=== PATIENT | male | born 1955 | race Caucasian/White ===

== ENCOUNTER 2017-01-01 04:10 | Observation (INO) | payer BC ==
[~2017-01-01] VITALS: Ht 167.6 cm; Wt 98.5 kg
[~2017-01-01 04:10] MED LIST: ALEVE220 MG PO; AMARYL2 MG PO; ASPIRIN81 M2 PO; DIABETA5 MG PO; GLIMEPIRIDE2 MG PO; GLUCOPHAGE1000 MG PO; INVOKANA100 MG PO; LISINOPRIL10 MG PO; LO-DOSE ASPIRIN81 M1 PO; METFORMIN HCL500 M1 PO; PRAVACHOL80 MG PO; PRAVASTATIN SOD40 MG PO; PREVACID30 MG; PRINIVIL10 MG PO; XODOL 5-300 TA1 EACH PO
[2017-01-01 04:51] LABS: HEMATOCRIT 44.6 % (38.0-50.0); MCH 30.6 PG (29.0-34.0); MCHC 33.9 G/DL (30.0-36.0); MCV 90.5 FL (86-99); MEAN PLAT.VOLUME 11.5 uM^3 (9.0-12.4); PLATELET COUNT 139 K/uL (156-360); RBC DIS.WIDTH-SD 42.6 % (39-53); RED BLOOD COUNT 4.93 M/uL (4.00-5.50); WHITE BLOOD COUNT 8.1 K/uL (4.1-10.2)
[2017-01-01 05:04] LABS: CHLORIDE 102 mEq/L (99-109); POTASSIUM 4.1 mEq/L (3.7-5.4); SODIUM 137 mEq/L (136-147)
[2017-01-01 05:08] LABS: ANION GAP 13 MEQ/L (2-14)
[2017-01-01 05:10] LABS: GFR ESTIMATE (CALCULATED) > 59 mL/min/; TROP-I INTERPRETATION NEGATIVE; TROPONIN-I < 0.01 ng/mL (0.0-0.30)
[2017-01-01 05:11] LABS: UREA NITROGEN (BUN) 17 mg/dL (9-23)
[2017-01-01 05:18] LABS: GLUCOSE 406 mg/dL (70-99)
[2017-01-01 07:04] LABS: POINT-OF-CARE METER ID UU13113747
[2017-01-01] MEDS ORDERED: METOPROLOL TART25 MG PO (08:54)
[2017-01-01 09:36] LABS: POINT-OF-CARE METER ID UU13113747
[2017-01-01 10:36] VITALS: BP 133/71
[2017-01-01 11:36] LABS: D-DIMER ELISA < 150.00 ng/mLDDU (<230)
[2017-01-01 11:49] LABS: TROP-I INTERPRETATION NEGATIVE; TROPONIN-I 0.01 ng/mL (0.0-0.30)
[2017-01-01 11:51] LABS: HDL CHOLESTEROL 40 MG/DL (Desirable>=40); LDL CHOLESTEROL 96 mg/dL (Desirable<100); NON-HDL CHOLESTEROL 155 mg/dL (Desirable<160); TOTAL CHOLESTEROL 195 mg/dL (Desirable<200); TRIGLYCERIDES 294 MG/DL (Normal: <150)
[2017-01-01 12:40] VITALS: BP 100/79
[2017-01-01 13:16] LABS: POINT-OF-CARE METER ID UU13113700
[2017-01-01 16:00] VITALS: BP 110/62
[2017-01-01 17:07] LABS: TROP-I INTERPRETATION NEGATIVE; TROPONIN-I 0.02 ng/mL (0.0-0.30)
[2017-01-01] MEDS ORDERED: ASPIR-LOW81 MG PO (17:21)
[2017-01-01 17:30] LABS: POINT-OF-CARE METER ID UU13113700
== END 2017-01-01 18:15 | disposition home or self-care (01) ==
LOC: EME 04:10 → 5WEST 07:25 → ENRESERV 07:26 → CANRESERV 07:34 → ENRESERV 07:34 → EDOF 09:43 → 5WEST 10:14
PROVIDERS: Emergency Medicine; Internal Medicine
DX: R07.9 Chest pain, unspecified (principal); E11.65 Type 2 diabetes mellitus with hyperglycemia; I10 Essential (primary) hypertension; E78.5 Hyperlipidemia, unspecified; E66.01 Morbid (severe) obesity due to excess calories; J84.10 Pulmonary fibrosis, unspecified; J45.909 Unspecified asthma, uncomplicated; Z87.891 Personal history of nicotine dependence; Z87.442 Personal history of urinary calculi; Z82.49 Family history of ischemic heart disease and other diseases of the circulatory system; Z79.82 Long term (current) use of aspirin; Z79.84 Long term (current) use of oral hypoglycemic drugs; Z68.35 Body mass index [BMI] 35.0-35.9, adult
CPT/HCPCS: 71020; 80048; 80061; 82948; 84484; 85027; 85379; 93005; 99281; 99285; G0378; J1650; J1815; J7030

== ENCOUNTER → 2017-04-29 | Outpatient (CLI) | payer BC ==
[~2017-04-29] VITALS: Ht 167.6 cm; Wt 96.2 kg
[~2017-04-29] MED LIST changes: +AMARYL4 MG PO; +ASPIR 8181 M1 PO; +ASPIR-LOW81 MG PO; -GLIMEPIRIDE2 MG PO; +METOPROLOL TART25 MG PO; +NITROSTAT0.4 MG SL
[2017-04-29 14:28] LABS: ALBUMIN 4.3 G/DL (3.2-4.8); CHLORIDE 105 MEQ/L (99-109); POTASSIUM 4.4 MEQ/L (3.7-5.4); SODIUM 139 MEQ/L (136-147); TOTAL BILIRUBIN 1.4 MG/DL (0.0-1.0)
[2017-04-29 14:34] LABS: ALKALINE PHOSPHATASE 71 IU/L (3-129); ALT (GPT) 163 IU/L (3-49); AST (GOT) 59 IU/L (2-34); CREATININE 0.7 MG/DL (0.6-1.3); GFR ESTIMATE (CALCULATED) > 59 mL/min/ (58.99-99999); GLUCOSE 146 mg/dL (70-99); TOTAL PROTEIN 7.5 G/DL (6.4-8.3); UREA NITROGEN (BUN) 17 mg/dL (9-23)
== END | disposition home or self-care (01) ==
LOC: AMB 10:43
PROVIDERS: Internal Medicine Gastroenterology
DX: K80.61 Calculus of gallbladder and bile duct with cholecystitis, unspecified, with obstruction (principal); K86.89 Other specified diseases of pancreas; R79.89 Other specified abnormal findings of blood chemistry; K75.81 Nonalcoholic steatohepatitis (NASH); D69.6 Thrombocytopenia, unspecified; D45 Polycythemia vera; I10 Essential (primary) hypertension; E11.9 Type 2 diabetes mellitus without complications; E80.6 Other disorders of bilirubin metabolism; J84.112 Idiopathic pulmonary fibrosis; E78.5 Hyperlipidemia, unspecified; Z79.82 Long term (current) use of aspirin; F17.220 Nicotine dependence, chewing tobacco, uncomplicated; Z79.84 Long term (current) use of oral hypoglycemic drugs
CPT/HCPCS: 74329; 80053; 82948; 87081; 88108; 88305; C1757; C1769; C2625; J0330; J2250; J2405; J3010

== ENCOUNTER 2017-05-04 08:10 | Inpatient (IN) | payer BC ==
[~2017-05-04] VITALS: Ht 167.6 cm; Wt 96.2 kg
[2017-05-04 08:44] VITALS: BP 162/75
[2017-05-04 11:51] LABS: INTER. NORMALIZED RATIO 1.1
[2017-05-04 11:53] LABS: PTT 27.9 SEC (25-37)
[2017-05-04 12:15] VITALS: BP 176/73
[2017-05-04 13:33] LABS: ALBUMIN 4.5 G/DL (3.2-4.8); AMYLASE 35 IU/L (1-118); CHLORIDE 103 MEQ/L (99-109); POTASSIUM 4.7 MEQ/L (3.7-5.4); SODIUM 139 MEQ/L (136-147); TOTAL BILIRUBIN 1.4 MG/DL (0.0-1.0)
[2017-05-04 13:41] LABS: ALKALINE PHOSPHATASE 91 IU/L (3-129); ALT (GPT) 71 IU/L (3-49); CREATININE 0.7 MG/DL (0.6-1.3); GFR ESTIMATE (CALCULATED) > 59 mL/min/ (58.99-99999); GLUCOSE 173 mg/dL (70-99); LIPASE 96 U/L (1.0-51.0); TOTAL PROTEIN 7.3 G/DL (6.4-8.3); UREA NITROGEN (BUN) 14 mg/dL (9-23)
[2017-05-04 13:44] LABS: AST (GOT) 28 IU/L (2-34)
[2017-05-04 17:36] VITALS: BP 157/69
[2017-05-04 18:57] LABS: BASOPHIL (%) 0.1 % (0-1); EOSINOPHIL (%) 0 % (0-5); HEMATOCRIT 50.3 % (38.0-50.0); HEMOGLOBIN 16.4 G/DL (12.5-16.6); IMMATURE GRANULOCYTE (%) 0.4 % (0.0-0.7); LYMPHOCYTE (%) 5.3 % (15-42); MCH 30.4 PG (29.0-34.0); MCHC 32.6 G/DL (30.0-36.0); MCV 93.1 FL (86-99); MONOCYTE COUNT 1.3 K/uL (0-0.8); NEUTROPHIL (%) 87.2 % (45-76); NEUTROPHIL COUNT 15.7 K/uL (1.8-6.4); RBC DIS.WIDTH-CV 13.4 % (11.8-14.6); RBC DIS.WIDTH-SD 45.9 % (39-53)
[2017-05-04 19:05] LABS: PLATELET COUNT 249 K/uL (156-360)
[2017-05-04 19:36] VITALS: BP 141/77
[2017-05-04 23:56] VITALS: BP 136/80
[2017-05-05 03:32] VITALS: BP 136/85
[2017-05-05 06:22] LABS: BASOPHIL (%) 0.2 % (0-1); BASOPHIL COUNT 0.1 K/uL (0-0.1); EOSINOPHIL (%) 0 % (0-5); HEMATOCRIT 46.6 % (38.0-50.0); HEMATOCRIT 46.7 % (38.0-50.0); HEMOGLOBIN 15.3 G/DL (12.5-16.6); HEMOGLOBIN 15.7 G/DL (12.5-16.6); IMMATURE GRANULOCYTE (%) 2.6 % (0.0-0.7); LYMPHOCYTE (%) 3.5 % (15-42); LYMPHOCYTE COUNT 0.9 K/uL (1.0-2.8); MCH 30.8 PG (29.0-34.0); MCH 31.7 PG (29.0-34.0); MCHC 32.8 G/DL (30.0-36.0); MCHC 33.6 G/DL (30.0-36.0); MCV 94.3 FL (86-99); MONOCYTE (%) 4.2 % (3-12); MONOCYTE (%) 4.4 % (3-12); MONOCYTE COUNT 1.1 K/uL (0-0.8); NEUTROPHIL (%) 89.5 % (45-76); NEUTROPHIL (%) 89.9 % (45-76); NEUTROPHIL COUNT 22.2 K/uL (1.8-6.4); NEUTROPHIL COUNT 22.3 K/uL (1.8-6.4); PLATELET COUNT 199 K/uL (156-360); PLATELET COUNT 200 K/uL (156-360); RBC DIS.WIDTH-CV 13.8 % (11.8-14.6); RBC DIS.WIDTH-SD 47.7 % (39-53); RBC DIS.WIDTH-SD 47.8 % (39-53); RED BLOOD COUNT 4.95 M/uL (4.00-5.50); RED BLOOD COUNT 4.96 M/uL (4.00-5.50); WHITE BLOOD COUNT 24.7 K/uL (4.1-10.2); WHITE BLOOD COUNT 24.9 K/uL (4.1-10.2)
[2017-05-05 06:55] LABS: ALKALINE PHOSPHATASE 86 IU/L (3-129); ALT (GPT) 54 IU/L (3-49); AST (GOT) 27 IU/L (2-34); CHLORIDE 99 MEQ/L (99-109); CREATININE 0.9 MG/DL (0.6-1.3); GFR ESTIMATE (CALCULATED) > 59 mL/min/ (58.99-99999); GLUCOSE 185 mg/dL (70-99); POTASSIUM 4.3 MEQ/L (3.7-5.4); SODIUM 137 MEQ/L (136-147); TOTAL PROTEIN 6.5 G/DL (6.4-8.3); UREA NITROGEN (BUN) 17 mg/dL (9-23)
[2017-05-05 06:58] LABS: TOTAL BILIRUBIN 1.8 MG/DL (0.0-1.0)
[2017-05-05 08:18] VITALS: BP 135/80
[2017-05-05 15:07] VITALS: BP 127/78
[2017-05-05 21:10] VITALS: BP 125/76
[2017-05-06 00:50] VITALS: BP 119/66
[2017-05-06 03:51] VITALS: BP 114/72
[2017-05-06 06:46] LABS: BASOPHIL (%) 0.1 % (0-1); EOSINOPHIL (%) 0 % (0-5); HEMATOCRIT 38.9 % (38.0-50.0); IMMATURE GRANULOCYTE (%) 0.6 % (0.0-0.7); LYMPHOCYTE (%) 5.2 % (15-42); LYMPHOCYTE COUNT 0.8 K/uL (1.0-2.8); MCH 30.4 PG (29.0-34.0); MCHC 31.9 G/DL (30.0-36.0); MCV 95.3 FL (86-99); MONOCYTE COUNT 0.6 K/uL (0-0.8); NEUTROPHIL (%) 90.1 % (45-76); NEUTROPHIL COUNT 14.3 K/uL (1.8-6.4); RBC DIS.WIDTH-CV 13.9 % (11.8-14.6); RBC DIS.WIDTH-SD 48.8 % (39-53); RED BLOOD COUNT 4.08 M/uL (4.00-5.50); WHITE BLOOD COUNT 15.9 K/uL (4.1-10.2)
[2017-05-06 06:58] LABS: PLAT.SUFFICIENCY DECREASED; PLATELET CLUMPS PRESENT - PLATELET COUNTS APPEARS DECREASED
[2017-05-06 07:10] LABS: ALBUMIN 3.1 G/DL (3.2-4.8); ALKALINE PHOSPHATASE 59 IU/L (3-129); ALT (GPT) 43 IU/L (3-49); AST (GOT) 26 IU/L (2-34); CHLORIDE 102 MEQ/L (99-109); CREATININE 0.9 MG/DL (0.6-1.3); GFR ESTIMATE (CALCULATED) > 59 mL/min/ (58.99-99999); GLUCOSE 170 mg/dL (70-99); POTASSIUM 4.3 MEQ/L (3.7-5.4); SODIUM 140 MEQ/L (136-147); UREA NITROGEN (BUN) 15 mg/dL (9-23)
[2017-05-06 07:11] LABS: TOTAL BILIRUBIN 1.1 MG/DL (0.0-1.0); TOTAL PROTEIN 5.4 G/DL (6.4-8.3)
[2017-05-06 07:50] LABS: HEMOGLOBIN 12.4 G/DL (12.5-16.6); PLATELET COUNT UNABLE TO REPORT K/uL (156-360)
[2017-05-06 09:08] VITALS: BP 115/63
[2017-05-06] MEDS ORDERED: FLAGYL500 MG PO (13:21)
[2017-05-06] MEDS ORDERED: ONDANSETRON HCL8 MG PO (13:21)
[2017-05-06] MEDS ORDERED: DILAUDID4 MG PO (13:21)
[2017-05-06] MEDS ORDERED: COLACE100 MG PO (13:21)
[2017-05-06] MEDS ORDERED: LEVAQUIN750 MG PO (13:21)
== END 2017-05-06 18:10 | disposition home or self-care (01) | DRG 410 ==
LOC: SDC 08:10 → 2EAST 10:26 → 2SOUTH 10:26 → ENRESERV 10:27 → 2EAST 12:16 → SDC 12:56 → 2EAST 05-06 18:10
PROVIDERS: Surgery
PROC: 0DNW4ZZ Release Peritoneum, Percutaneous Endoscopic Approach (ICD-10-PCS; principal; 2017-05-05)
PROC: 0FB44ZZ Excision of Gallbladder, Percutaneous Endoscopic Approach (ICD-10-PCS; principal; 2017-05-05)
PROC: 0FC44ZZ Extirpation of Matter from Gallbladder, Percutaneous Endoscopic Approach (ICD-10-PCS; principal; 2017-05-05)
DX: K80.00 Calculus of gallbladder with acute cholecystitis without obstruction (principal); K82.8 Other specified diseases of gallbladder; I10 Essential (primary) hypertension; E11.9 Type 2 diabetes mellitus without complications; E66.01 Morbid (severe) obesity due to excess calories; Z68.34 Body mass index [BMI] 34.0-34.9, adult; K76.0 Fatty (change of) liver, not elsewhere classified; E78.5 Hyperlipidemia, unspecified; J45.909 Unspecified asthma, uncomplicated; F17.220 Nicotine dependence, chewing tobacco, uncomplicated; Z79.84 Long term (current) use of oral hypoglycemic drugs; Z87.11 Personal history of peptic ulcer disease; Z87.442 Personal history of urinary calculi
CPT/HCPCS: 71046; 74178; 80053; 82150; 82948; 83690; 85025; 85025 91; 85610; 85730; 87070; 87075; 87076; 87077; 87205; 87493; 88304; 94799; C1769; J0330; J0690; J1100; J1170; J1644; J2250; J2270; J2405; J2543; J3010; J7030; J7050; J7120; S0020; S0030

== ENCOUNTER → 2017-06-18 | Outpatient (CLI) | payer BC ==
[~2017-06-18] VITALS: Ht 167.6 cm; Wt 85.3 kg
[~2017-06-18] MED LIST changes: +COLACE100 MG PO; +DILAUDID4 MG PO; +FLAGYL500 MG PO; +LEVAQUIN750 MG PO; +ONDANSETRON HCL8 MG PO
== END | disposition home or self-care (01) ==
LOC: AMB 07:51
PROVIDERS: Internal Medicine Gastroenterology
PROC: 0FPB8DZ Removal of Intraluminal Device from Hepatobiliary Duct, Via Natural or Artificial Opening Endoscopic (ICD-10-PCS; principal; 2017-06-18)
DX: Z45.89 Encounter for adjustment and management of other implanted devices (principal); Z90.49 Acquired absence of other specified parts of digestive tract
CPT/HCPCS: 74328; 82948; 87081; C1757; J0330; J1170; J2250; J2370; J2405